=== PATIENT | female | born 1990 ===

== ENCOUNTER 2024-10-30 06:10 | Inpatient (IN) | payer OTHER ==
[~2024-10-30] VITALS: Ht 162.6 cm; Wt 3.2 kg
[2024-10-30] MEDS ORDERED: PRENATAL CAPLE1 EAC1 PO (06:22)
[2024-10-30 06:23] VITALS: BP 113/70
[2024-10-30] MEDS ORDERED: RINGERS SOLUTION,LACTATED 1,000 ML IV SCH (06:30)
[2024-10-30 07:16] LABS: BASO % 0.5 % (0.1-1.2); EOS # 0.10 (0.04-0.54); EOS % 0.8 % (0.7-7.0); LYMPH # 2.89 (1.18-3.74); LYMPH % 22.2 % (19.3-53.1); MEAN PLATELET VOLUME 12.50 fl (9.4-12.4); MONO # 1.05 (0.24-0.82); MONO % 8.1 % (4.7-12.5); NEUT # 8.27 (1.56-6.13); NEUT % 63.3 % (34.0-71.1); RED CELL DISTRIBUTION WIDTH 13.7 % (11.6-14.4)
[2024-10-30 07:21] LABS: URINE BILIRRUBIN NEGATIVE (NEGATIVE); URINE BLOOD MODERATE; URINE GLUCOSE NEGATIVE (NEGATIVE); URINE KETONE NEGATIVE (NEGATIVE); URINE LEUKOCYTE NEGATIVE; URINE NITRATE NEGATIVE; URINE UROBILINOGEN 0.2 E.U./dl
[2024-10-30 07:23] LABS: URINE APPEARANCE CLEAR; URINE COLOR YELLOW; URINE PROTEIN 100 (NEGATIVE)
[2024-10-30 07:24] LABS: URINE BACTERIA 504.0 uL (0.0-1933); URINE CAST 15.27 uL (0.0-1.40); URINE EPITHELIAL CELLS 56.6 uL (0.0-38.8); URINE RBC 1616.7 uL (0.0-20.8); URINE WBC 29.9 uL (0.0-23.2)
[2024-10-30 07:38] VITALS: BP 123/71
[2024-10-30 07:46] LABS: INR 0.94
[2024-10-30 08:09] LABS: ALT/SGPT 33.0 U/L (12-78); AST/SGOT 24.0 U/L (15-37); BILIRUBIN TOTAL 0.3 mg/dL (0.3-1.2); BUN CREA RATIO 22.0 (7.0-25.0); CREATININE SERUM 0.55 mg/dL (0.55-1.02); GFR 125.78; GLOBULINA 3.5 G/DL (2.4-3.5); GLUCOSE FASTING 81.0 mg/dL (65-100)
[2024-10-30 08:15] LABS: OSMOLALITY SERUM 278.0 MOSM/KG (275-295)
[2024-10-30 11:18] VITALS: BP 122/72
[2024-10-30] MEDS ORDERED: OXYTOCIN 500 ML IV ONE (13:30)
[2024-10-30 15:07] VITALS: BP 118/63
[2024-10-30] MEDS ORDERED: OXYTOCIN 10 UNITS/ML VIAL ONE (16:40)
[2024-10-30] MEDS ORDERED: ERYTHROMYCIN BASE OPHT 1GM EACH TUBE OP ONE (16:41)
[2024-10-30] MEDS ORDERED: CITRIC ACID/SODIUM CITRATE 30 ML BLIST.PACK PO STA (16:56)
[2024-10-30] MEDS ORDERED: CEFAZOLIN SODIUM 1,000 MG VIAL ONE (17:07)
[2024-10-30] MEDS ORDERED: CEFAZOLIN SODIUM 1,000 MG VIAL IV SCH (17:30)
[2024-10-30] MEDS ORDERED: SOD FERRIC GLUC COMPLX/SUCROSE 125 MG in 0.9 % SODIUM CHLORIDE 100 ML IV SCH (20:12)
[2024-10-30] MEDS ORDERED: MORPHINE SULFATE 4 MG/ML CARTRIDGE IV PRN (20:15)
[2024-10-30] MEDS ORDERED: MORPHINE SULFATE 4 MG/ML VIAL IV ONE ×2 (21:40→22:40)
[2024-10-31] VITALS: BP 114/71
[2024-10-31] MEDS ORDERED: MORPHINE SULFATE 4 MG/ML CARTRIDGE IV PRN (08:00)
[2024-10-31 08:52] VITALS: BP 113/73; O2SAT 98
[2024-10-31 12:07] LABS: BASO % 0.1 % (0.1-1.2); EOS # 0.03 (0.04-0.54); EOS % 0.2 % (0.7-7.0); LYMPH # 1.98 (1.18-3.74); LYMPH % 13.5 % (19.3-53.1); MEAN PLATELET VOLUME 11.90 fl (9.4-12.4); MONO # 0.86 (0.24-0.82); MONO % 5.9 % (4.7-12.5); NEUT # 11.53 (1.56-6.13); NEUT % 78.5 % (34.0-71.1); RED CELL DISTRIBUTION WIDTH 13.8 % (11.6-14.4)
[2024-10-31 16:33] VITALS: BP 119/75
[2024-11-01] VITALS: BP 128/67
[2024-11-01] MEDS ORDERED: OxyCODONE HCL 5 MG TABLET (ROXICODONE) PO PRN (06:00)
[2024-11-01 08:46] VITALS: BP 120/84
[2024-11-01] MEDS ORDERED: IRON FUM,PS/FOLIC ACID/VITC/B3 1 CAP CAPSULE PO SCH (09:00)
[2024-11-01 16:58] VITALS: BP 119/70
[2024-11-02 00:30] VITALS: BP 105/73
[2024-11-02 09:16] VITALS: BP 117/77
== END 2024-11-02 14:36 | disposition home or self-care (01) | DRG 788 ==
LOC: LDR 06:10 → O/R 19:05 → OB/GYN 21:54
PROVIDERS: Obstetrics & Gynecology; ADMIT Obstetrics & Gynecology; ATTEND Obstetrics & Gynecology
PROC: 4A1HXCZ Monitoring of Products of Conception, Cardiac Rate, External Approach (ICD-10-PCS; 2024-10-30)
PROC: 10D00Z1 Extraction of Products of Conception, Low, Open Approach (ICD-10-PCS; principal; 2024-10-30 20:00)
DX: O82 Encounter for cesarean delivery without indication (principal); Z3A.37 37 weeks gestation of pregnancy; Z37.0 Single live birth